=== PATIENT | male | born 1950 | race Caucasian/White ===

== ENCOUNTER 2017-01-25 22:11 | Emergency (ER) | payer MEDICARE, MEDICAID ==
[~2017-01-25] VITALS: Ht 188 cm; Wt 100.0 kg
[~2017-01-25 22:11] MED LIST: ASPI81TA3 PO; BENA1TAB11 PO; METO-429 PO
[2017-01-25 22:17] VITALS: Ht 188 cm; Wt 100.0 kg
--- NOTE | 2017-01-25 22:23 | ERD ---
ER Documentation Chief Complaint Chief Complaint CP x 1 hour, worse w/ palpation and respiraiton. asa 162/ntg x2 by ems HPI The patient is a 66-year-old male, presenting to the ER because of substernal chest pain, associated with palpitation and worse with respiration about an hour prior to arrival. He was treated with aspirin 160 mg p.o. and 2 nitroglycerin spray with some response. He denies fever, chills, cough, neck pain, chest pain with exertion/vomiting/diaphoresis, dyspnea, abdominal pain, vomiting, dysuria, diarrhea. He has a history of chronic bilateral lower extremity venous insufficiency that he had extensive study at [facility] recently. He smokes socially, denies drinking. Past medical history: Hypertension, PTSD, history of CHF, dyslipidemia, neuropathy, CAD, venous insufficiency, gout Past medical history: none ROS All systems reviewed and are negative except as per history of present illness. Medications Home Meds Active Scripts Benazepril-Hydrochlorothiazide (Benazepril-Hydrochlorothiazide) 5-6.25 Mg Tablet , 1 TAB PO BID, #60 TAB Prov:MELISSA SAVAGE MD 02/09/14 Metoprolol Tartrate* (Lopressor*) 50 Mg Tab, 25 MG PO BID, #60 TAB Prov:MELISSA SAVAGE MD 02/09/14 Aspirin (Aspirin) 81 Mg Chew, 81 MG PO DAILY, #30 TAB Prov:MELISSA SAVAGE MD 02/09/14 Allergies Allergies: Coded Allergies: No Known Allergies (Unverified Allergy, Unknown, 02/11/14) PMhx/Soc History of Surgery: No Anesthesia Reaction: No Hx Neurological Disorder: Yes Hx Respiratory Disorders: No Hx Cardiac Disorders: Yes Hx Psychiatric Problems: Yes Hx Miscellaneous Medical Probl: No Hx Alcohol Use: No Hx Substance Use: No Hx Tobacco Use: No Physical Exam Vitals Vital Signs Date Time Temp Pulse Resp B/P Pulse Ox O2 Delivery O2 Flow Rate FiO2 01/25/17 22:17 100.7 113 21 170/97 96 Physical Exam Const: No acute distress. Head: Atraumatic. Eyes: Normal Conjunctiva. ENT: Normal External Ears, Nose and Mouth. Neck: Full range of motion. No meningismus. Resp: Bibasilar crackle Cardio: Regular Tachycardic Abd: Soft, non distended, normal bowel sounds, non tender. Skin: No petechiae or rashes. Back: No midline or flank tenderness. Ext: Bilateral lower extremity edema and erythema and warm to touch Neur: Awake and alert. No focal deficit Psych: Normal Mood and Affect. Procedures/MDM EKG: Read by emergency physician Rate/Rhythm: Sinus tachycardia 102 beats/min QRS, ST, T-waves: No ST elevation, no T inversion, Inferior Q waves Impression: Abnormal EKG [place] [id number] Radiology Main Line: [phone] DIAGNOSTIC IMAGING REPORT Patient: PANCHITO DUBON : 1950 Age: 66 Sex: M MR #: [id number] DOS: 01/25/172222 Ordering MD: CARO BOLAND MD Location: E/R Room/Bed: PROCEDURE: XR Chest. CLINICAL INDICATION: Cough. Possible sepsis. TECHNIQUE: PA and Lateral views of the chest were obtained. COMPARISON: Chest radiograph dated February 08, 2014. FINDINGS: The heart is borderline enlarged. There are low lung volumes with mild pulmonary vascular congestion. No focal consolidations, pleural effusions, or pneumothorax. There are degenerative changes of the spine and shoulder joints. IMPRESSION: 1. Mild pulmonary vascular congestion. 2. No focal consolidations. RPTAT:AAJJ Physician Priscilla Date Time Electronically viewed and signed by Physician Priscilla on 01/25/2017 22:55 QL/ CC: CARO BOLAND MD MEDICAL MAKING DECISION: The patient is 66-year-old male, presenting to the ER because of acute chest pain, SIRS, bilateral lower extremity cellulitis. I have ordered a workup for him but he declined. 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 The patient signed out AGAINST MEDICAL ADVICE. Risks, benefits, alternatives were explained to the patient. Risks include but not limited to and permanent disability Departure Diagnosis: Primary Impression: Chest pain Additional Impressions: SIRS (systemic inflammatory response syndrome) Cellulitis of lower leg Condition: Stable Comments The patient signed out AGAINST MEDICAL ADVICE. Risks, benefits, alternatives were explained to the patient. Risks include but not limited to and permanent disability next He was advised to see his doctor immediately and return if any concern CARO BOLAND MD Jan 25, 2017 22:23
--- NOTE | 2017-01-25 22:23 | ERD ---
ER Documentation Chief Complaint Chief Complaint CP x 1 hour, worse w/ palpation and respiraiton. asa 162/ntg x2 by ems HPI The patient is a 66-year-old male, presenting to the ER because of substernal chest pain, associated with palpitation and worse with respiration about an hour prior to arrival. He was treated with aspirin 160 mg p.o. and 2 nitroglycerin spray with some response. He denies fever, chills, cough, neck pain, chest pain with exertion/vomiting/diaphoresis, dyspnea, abdominal pain, vomiting, dysuria, diarrhea. He has a history of chronic bilateral lower extremity venous insufficiency that he had extensive study at [facility] recently. He smokes socially, denies drinking. Past medical history: Hypertension, PTSD, history of CHF, dyslipidemia, neuropathy, CAD, venous insufficiency, gout Past medical history: none ROS All systems reviewed and are negative except as per history of present illness. Medications Home Meds Active Scripts Benazepril-Hydrochlorothiazide (Benazepril-Hydrochlorothiazide) 5-6.25 Mg Tablet , 1 TAB PO BID, #60 TAB Prov:MELISSA SAVAEG MD 02/09/14 Metoprolol Tartrate* (Lopressor*) 50 Mg Tab, 25 MG PO BID, #60 TAB Prov:MELISSA SAVAGE MD 02/09/14 Aspirin (Aspirin) 81 Mg Chew, 81 MG PO DAILY, #30 TAB Prov:MELISSA SAVAGE MD 02/09/14 Allergies Allergies: Coded Allergies: No Known Allergies (Unverified Allergy, Unknown, 02/11/14) PMhx/Soc History of Surgery: No Anesthesia Reaction: No Hx Neurological Disorder: Yes Hx Respiratory Disorders: No Hx Cardiac Disorders: Yes Hx Psychiatric Problems: Yes Hx Miscellaneous Medical Probl: No Hx Alcohol Use: No Hx Substance Use: No Hx Tobacco Use: No Physical Exam Vitals Vital Signs Date Time Temp Pulse Resp B/P Pulse Ox O2 Delivery O2 Flow Rate FiO2 01/25/17 22:17 100.7 113 21 170/97 96 Physical Exam Const: No acute distress. Head: Atraumatic. Eyes: Normal Conjunctiva. ENT: Normal External Ears, Nose and Mouth. Neck: Full range of motion. No meningismus. Resp: Bibasilar crackle Cardio: Regular Tachycardic Abd: Soft, non distended, normal bowel sounds, non tender. Skin: No petechiae or rashes. Back: No midline or flank tenderness. Ext: Bilateral lower extremity edema and erythema and warm to touch Neur: Awake and alert. No focal deficit Psych: Normal Mood and Affect. Procedures/MDM EKG: Read by emergency physician Rate/Rhythm: Sinus tachycardia 102 beats/min QRS, ST, T-waves: No ST elevation, no T inversion, Inferior Q waves Impression: Abnormal EKG [place] [id number] Radiology Main Line: [phone] DIAGNOSTIC IMAGING REPORT Patient: PANCHITO DUBON : 1950 Age: 66 Sex: M MR #: [id number] DOS: 01/25/172222 Ordering MD: CARO BOLAND MD Location: E/R Room/Bed: PROCEDURE: XR Chest. CLINICAL INDICATION: Cough. Possible sepsis. TECHNIQUE: PA and Lateral views of the chest were obtained. COMPARISON: Chest radiograph dated February 08, 2014. FINDINGS: The heart is borderline enlarged. There are low lung volumes with mild pulmonary vascular congestion. No focal consolidations, pleural effusions, or pneumothorax. There are degenerative changes of the spine and shoulder joints. IMPRESSION: 1. Mild pulmonary vascular congestion. 2. No focal consolidations. RPTAT:AAJJ Physician Priscilla Date Time Electronically viewed and signed by Physician Priscilla on 01/25/2017 22:55 QL/ CC: CARO BOLAND MD MEDICAL MAKING DECISION: The patient is 66-year-old male, presenting to the ER because of acute chest pain, SIRS, bilateral lower extremity cellulitis. I have ordered a workup for him but he declined. 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 The patient signed out AGAINST MEDICAL ADVICE. Risks, benefits, alternatives were explained to the patient. Risks include but not limited to and permanent disability Departure Diagnosis: Primary Impression: Chest pain Additional Impressions: SIRS (systemic inflammatory response syndrome) Cellulitis of lower leg Condition: Stable Comments The patient signed out AGAINST MEDICAL ADVICE. Risks, benefits, alternatives were explained to the patient. Risks include but not limited to and permanent disability next He was advised to see his doctor immediately and return if any concern CARO BOLAND MD Jan 25, 2017 22:23
--- NOTE | 2017-01-25 22:56 | RADRPT ---
PROCEDURE: XR Chest. CLINICAL INDICATION: Cough. Possible sepsis. TECHNIQUE: PA and Lateral views of the chest were obtained. COMPARISON: Chest radiograph dated February 08, 2014. FINDINGS: The heart is borderline enlarged. There are low lung volumes with mild pulmonary vascular congestion. No focal consolidations, pleural effusions, or pneumothorax. There are degenerative changes of the spine and shoulder joints. IMPRESSION: 1. Mild pulmonary vascular congestion. 2. No focal consolidations. RPTAT:AAJJ Physician Priscilla Date Time Electronically viewed and signed by Yordan Levine Physician on 01/25/2017 22:55 QL/
[2017-01-25 23:25] VITALS: BP 166/94; PULSE 77; RESP 20; TEMP 100.1
== END 2017-01-25 23:30 | disposition left against medical advice (07) ==
LOC: E/R 22:11
DX: L03.115 Cellulitis of right lower limb (principal); R65.10 Systemic inflammatory response syndrome (SIRS) of non-infectious origin without acute organ dysfunction; I10 Essential (primary) hypertension; I50.9 Heart failure, unspecified; I25.10 Atherosclerotic heart disease of native coronary artery without angina pectoris; Z79.82 Long term (current) use of aspirin
CPT/HCPCS: 71010; 93005